=== PATIENT | female | born 1970 | race Caucasian/White ===

== ENCOUNTER 2019-08-08 05:50 | Outpatient (RCR) | payer OTHER ==
[~2019-08-08] VITALS: Ht 157 cm; Wt 63.0 kg
[~2019-08-08 05:50] MED LIST: ATEN50TA PO; LEVO75TA6 PO
== END 2019-08-08 15:08 | disposition home or self-care (01) ==
LOC: PREOP 05:50
PROVIDERS: ATTEND Surgery
DX: Z01.812 Encounter for preprocedural laboratory examination (principal); Z20.828 Contact with and (suspected) exposure to other viral communicable diseases; Z85.038 Personal history of other malignant neoplasm of large intestine
CPT/HCPCS: 87635

== ENCOUNTER 2019-08-13 13:40 | Day surgery (SDC) | payer OTHER ==
[2019-08-13] VITALS (8 sets, daily range): BP systolic 119–147; BP diastolic 66–106
[~2019-08-13] VITALS: Ht 157 cm; Wt 63.0 kg
[2019-08-13] MEDS ORDERED: LACTATED RINGERS 1,000 ML IV ONE (13:43)
[2019-08-13] MEDS ORDERED: LACTATED RINGERS 1,000 ML IV STA (13:47)
--- NOTE | 2019-08-13 13:57 | Progress Note-Pre Operative ---
Pre-Operative Progress Note H&P Reviewed The H&P was reviewed, patient examined and no changes noted. Date Seen by Provider: Aug 13, 2019 Time Seen by Provider: 13:56 Date H&P Reviewed: Aug 13, 2019 Time H&P Reviewed: 13:56 Pre-Operative Diagnosis: family history colon cancer PATRICIA FREEMAN DO Aug 13, 2019 13:57
[2019-08-13] MEDS ORDERED: PROPOFOL INJECTION 50 ML IV ONE (14:36)
[2019-08-13] MEDS ORDERED: MIDAZOLAM 2 MG/2 ML (VERSED) VIAL ONE (14:37)
[2019-08-13] MEDS ORDERED: proPOfol 200 MG/20 ML (DIPRIVAN) VIAL IV ONE (15:07)
--- NOTE | 2019-08-13 15:16 | Progress Note-Post Operative ---
Post-Operative Progess Note Surgeon (s)/School Crossing Guard Supervisor (s) Surgeon PATRICIA FREEMAN DO School Crossing Guard Supervisor: na Pre-Operative Diagnosis family history colon cancer Post-Operative Diagnosis diverticulosis Procedure & Operative Findings Date of Procedure 08/13/19 Procedure Performed/Findings colonoscopy Anesthesia Type per chief vendor quality Estimated Blood Loss Estimated blood loss (mL): none Specimens/Packing Specimens Removed na PATRICIA FREEMAN DO Aug 13, 2019 15:16
--- NOTE | 2019-08-13 15:18 | Discharge Inst-Simple/Standard ---
Discharge Inst-Standard Discharge Medications New, Converted or Re-Newed RX: RX on Chart Patient Instructions/Follow Up Plan of Care/Instructions/FU: 2 weeks Robert to discuss hernia repair Activity as Tolerated: Yes Discharge Diet: Regular Diet (high fiber) PATRICIA FREEMAN DO Aug 13, 2019 15:18
--- OUTSIDE RECORDS SUMMARY | 2019-08-13 17:53 | XMS REPORT | Continuity of Care Document ---
Author Organization Unknown Address Unknown Phone Unavailable Allergies Active Description Code Type Severity Reaction Onset Reported/Identified Relationship to Patient Clinical Status Yes iodine [id number] Drug Allergy Mild "DIDNT LIKE THE 08/06/2019 Medications There is no data. Problems Date Dx Coded Attending Type Code Diagnosis Diagnosed By 01/05/1507 PATRICIA FREEMAN DO Ot Z01.812 ENCOUNTER FOR PREPROCEDURAL LABORATORY E 01/05/1507 PATRICIA FREEMAN DO Ot Z20.828 CONTACT W AND EXPOSURE TO OTH VIRAL COMM 01/05/1507 PATRICIA FREEMAN DO Ot Z85.038 PERSONAL HISTORY OF MALIGNANT NEOPLASM O Procedures There is no data. Results Test Result Range Coronavirus SARS-CoV-2 SO 2018 - 0 10:55 Coronavirus Ab [Units/volume] in Serum Negative Negative Encounters ACCT No. Visit Date/Time Discharge Status Pt. Type Provider Facility Loc./Unit Complaint [id number] 08/08/2019 05:50:00 020 15:08:00 DIS Outpatient PATRICIA FREEMAN DO Via [facility] PREOP SCREENING/FAMILY HX COL ON CA [id number] 08/13/2019 09:00:00 P EN Preadmit PATRICIA FREEMAN DO Via [facility] ENDO SCREENING/FAMILY HX COLON CA
--- NOTE | 2019-08-14 02:42 | OPERATIVE REPORT ---
DATE OF SERVICE: 08/13/2019 PREOPERATIVE DIAGNOSIS: Family history of colon cancer. POSTOPERATIVE DIAGNOSIS: Diverticulosis. PROCEDURE: Colonoscopy. SURGEON: Patricia Jones DO ANESTHESIA: Per RECESSING MACHINE OPERATOR. ESTIMATED BLOOD LOSS: None. COMPLICATIONS: None. INDICATIONS: The patient is a 49-year-old female with need for screening colonoscopy. She understands risks and benefits of procedure and wished to proceed with procedure. Consent was signed in the chart. DESCRIPTION OF PROCEDURE: The patient was taken to the endoscopy suite, placed in the left lateral recumbent position. Timeout was performed. Digital rectal exam was performed. There were no palpable polyps, masses or ulcerations. Scope was inserted in the rectum, advanced all the way to cecum with minimal difficulty. Prep was adequate. Scope was then slowly retracted back. There were no polyps, masses or ulcerations within the cecum, ascending, transverse, descending and sigmoid colon. The patient throughout most of the colon had diverticulosis. Once in the rectum, scope was retroflexed noting no other pathology. Scope was returned to its normal position, slowly withdrawn until completely removed. The patient tolerated procedure well without any complications. She was taken to recovery room in stable condition. RECOMMENDATIONS: The patient will need repeat colonoscopy in 5 years. Any issues before that be seen at that time. The patient will follow up in 2 weeks to discuss proceeding with hernia repair. Job ID: [id number] DocumentID: [id number] Dictated Date: 08/13/2019 15:37:52 Prompt Care Rn Date: 08/14/2019 02:41:30 Dictated By: PATRICIA JONES DO
== END 2019-08-13 15:55 | disposition home or self-care (01) ==
LOC: ENDO 13:40
PROVIDERS: ATTEND Surgery
DX: Z12.11 Encounter for screening for malignant neoplasm of colon (principal); K57.30 Diverticulosis of large intestine without perforation or abscess without bleeding; K43.9 Ventral hernia without obstruction or gangrene; K42.9 Umbilical hernia without obstruction or gangrene; I10 Essential (primary) hypertension; K21.9 Gastro-esophageal reflux disease without esophagitis; E03.9 Hypothyroidism, unspecified; M06.9 Rheumatoid arthritis, unspecified; G89.29 Other chronic pain; M54.9 Dorsalgia, unspecified; D64.9 Anemia, unspecified; Z79.899 Other long term (current) drug therapy; Z91.041 Radiographic dye allergy status; Z87.891 Personal history of nicotine dependence; Z80.0 Family history of malignant neoplasm of digestive organs

== ENCOUNTER 2019-10-22 14:52 | Outpatient (CLI) | payer OTHER ==
[~2019-10-22] VITALS: Ht 157 cm; Wt 60.4 kg
[2019-10-24] MEDS ORDERED: HYDR-4226 PO (09:23)
[2019-10-24] MEDS ORDERED: DOCU-143 PO (09:23)
== END 2019-10-22 14:54 | disposition home or self-care (01) ==
LOC: PREOP 14:52
PROVIDERS: ATTEND Surgery
DX: Z01.818 Encounter for other preprocedural examination (principal)

== ENCOUNTER 2020-02-13 05:35 | Outpatient (RCR) | payer OTHER ==
[~2020-02-13 05:35] MED LIST changes: +DOCU-143 PO; +HYDR-4226 PO; +HYDR25TA4 PO
== END 2020-05-13 ==
LOC: PREOP 05:35
PROVIDERS: ATTEND Otolaryngology Otolaryngology/Facial Plastic Surgery
DX: Z01.812 Encounter for preprocedural laboratory examination (principal); H90.0 Conductive hearing loss, bilateral; H69.93 Unspecified Eustachian tube disorder, bilateral; H65.23 Chronic serous otitis media, bilateral

== ENCOUNTER 2021-08-17 12:05 | Emergency (ER) | payer SELFPAY ==
[~2021-08-17] VITALS: Ht 154.9 cm; Wt 62.5 kg
[2021-08-17 12:59] LABS: BASOPHILS # (AUTO) 0.1 10^3/uL (0.0-0.1); BASOPHILS % (AUTO) 1 % (0-10); EOSINOPHILS # (AUTO) 0.2 10^3/uL (0.0-0.3); EOSINOPHILS % (AUTO) 2 % (0-10); HEMATOCRIT 42 % (35-52); HEMOGLOBIN 13.8 g/dL (11.5-16.0); LYMPHOCYTES # (AUTO) 1.7 10^3/uL (1.0-4.0); LYMPHOCYTES % (AUTO) 16 % (12-44); MEAN CORPUSCULAR HEMOGLOBIN 29 pg (25-34); MEAN CORPUSCULAR HGB CONC 33 g/dL (32-36); MEAN CORPUSCULAR VOLUME 89 fL (80-99); MEAN PLATELET VOLUME 11.4 fL (9.0-12.2); MONOCYTES # (AUTO) 0.8 10^3/uL (0.0-1.0); MONOCYTES % (AUTO) 7 % (0-12); NEUTROPHILS # (AUTO) 7.9 10^3/uL (1.8-7.8); NEUTROPHILS % (AUTO) 74 % (42-75); PLATELET COUNT 215 10^3/uL (130-400); WHITE BLOOD COUNT 10.7 10^3/uL (4.3-11.0)
[2021-08-17 13:03] LABS: BILIRUBIN,URINE 2+ (NEGATIVE); CLARITY,URINE CLOUDY; COLOR,URINE ORANGE; GLUCOSE, URINE (UA) 1+ (NEGATIVE); KETONES,URINE TRACE (NEGATIVE); LEUKOCYTE ESTERASE ,URINE NEGATIVE (NEGATIVE); NITRITE,URINE POSITIVE (NEGATIVE); PH,URINE 5.5 (5-9); PROTEIN,URINE 2+ (NEGATIVE)
[2021-08-17 13:06] LABS: ALBUMIN 4.4 GM/DL (3.2-4.5); POTASSIUM 3.8 MMOL/L (3.6-5.0)
[2021-08-17 13:08] LABS: CALCIUM 9.4 MG/DL (8.5-10.1)
[2021-08-17 13:09] LABS: TOTAL PROTEIN 7.2 GM/DL (6.4-8.2)
[2021-08-17 13:11] LABS: BILIRUBIN,TOTAL 0.5 MG/DL (0.1-1.0)
[2021-08-17 13:12] LABS: CREATININE SERUM 0.75 MG/DL (0.60-1.30)
[2021-08-17 13:12] LABS: BACTERIA,URINE TRACE /HPF; SQUAMOUS EPITHELIAL CELL,UR 0-2 /HPF; WBC,URINE 0-2 /HPF
[2021-08-17] MEDS ORDERED: cefTRIAXone 1 GM PRE-MIX 50 ML IV STA (13:53)
--- NOTE | 2021-08-17 13:56 | ED Abdominal Pain ---
General Chief Complaint: Abdominal/GI Problems Stated Complaint: ABD PAIN Nursing Triage Note: PT AMB TO FT1 WITH COMPLAINT OF LLQ ABD PAIN. STATES STARTED LAST NIGHT. Source of Information: Patient Exam Limitations: No Limitations History of Present Illness Date Seen by Provider: Aug 17, 2021 Time Seen by Provider: 13:54 Initial Comments Patient is a 51-year-old female presents ED with lower abdominal cramping discomfort. This started yesterday evening. Cramping has been constant bilateral lower abdomen and to lower back. She reports frequent urination with some pain and discomfort. She denies of any nausea vomiting, diarrhea. She states she was constipated a few days ago but that has improved. Has been taking anti-inflammatories with some improvement. She states she felt feverish. Denies chest pain, shortness of breath, sore throat, ear pain, headache, dizziness Allergies and Home Medications Allergies Coded Allergies: iodine (Verified Allergy, Mild, "DIDNT LIKE THE WAY IT MADE HER FEEL", 08/06/19) Patient Home Medication List Home Medication List Reviewed: Yes Atenolol (Atenolol) 50 Mg Tablet, 50 MG PO DAILY, (Reported) Entered as Reported by: FAWAD RODRIGUEZ on 08/06/19 1019 [facility]fl[facility] ([facility]fl[facility]) [facility] Prescribed by: ZOILA ROSS on 08/17/21 1521 Docusate Sodium (Colace) 100 Mg Capsule, 100 MG PO BID Prescribed by: PATRICIA FREEMAN on 10/24/19 0923 Hydrochlorothiazide (Hydrochlorothiazide) 25 Mg Tablet, 25 MG PO DAILY Prescribed by: MAGALY GREGORY on 10/25/19 1332 Hydrocodone/Acetaminophen (Hydrocodone/Acetaminophen 5 MG/325 MG TAB) 1 Each Tablet, 1 TAB PO Q4-6HR Prescribed by: PATRICIA FREEMAN on 10/24/19 0923 Hydrocodone/Acetaminophen (Hydrocodone-Acetamin 5-325 mg) 5 Mg-325 Mg Tablet, 1 TAB PO Q4H PRN for PAIN-MODERATE (5-7) Prescribed by: ZOILA ROSS on 08/17/21 1523 Levothyroxine Sodium (Levothyroxine Sodium) 75 Mcg Tablet, 75 MCG PO DAILY, (Reported) Entered as Reported by: FAWAD RODRIGUEZ on 08/06/19 1019 Metronidazole (Metronidazole) 500 Mg Tablet, 500 MG PO TID Prescribed by: ZOILA ROSS on 08/17/21 1521 Review of Systems Review of Systems Constitutional: No chills, No diaphoresis, No malaise, No weakness EENTM: No Blurred Vision, No Eye Pain Respiratory: Denies Cough, Denies Shortness of Air Cardiovascular: Denies Chest Pain, Denies Edema Gastrointestinal: Abdominal Pain; Denies Diarrhea; Nausea; Denies Vomiting Genitourinary: Denies Burning, Denies Discharge; Frequency Musculoskeletal: back pain; No joint pain Skin: No change in color, No change in hair/nails All Other Systems Reviewed Negative Unless Noted: Yes Past Zzonyjm-Tfzbxm-Umpgsw Hx Patient Social History Tobacco Use?: No Use of E-Cig and/or Vaping dev: No Substance use?: No Alcohol Use?: No Pt feels they are or have been: No Immunizations Up To Date Influenza Vaccine Up-to-Date: No; Not Current Seasonal Allergies Seasonal Allergies: Yes Past Medical History Surgeries: Yes (BMT, LEG FX) Section Respiratory: No Cardiac: Yes Hypertension Neurological: No Sexually Transmitted Disease: No HIV/AIDS: No Genitourinary: No Gastrointestinal: Yes (MILD) Gastroesophageal Reflux Musculoskeletal: Yes Arthritis, Chronic Back Pain Endocrine: Yes Hypothyroidsim HEENT: No Loss of Vision: Denies Hearing Impairment: Denies Cancer: No Psychosocial: No Integumentary: Yes (MILD) Psoriasis Blood Disorders: No (HX ANEMIA) Adverse Reaction/Blood Tranf: No (N/A) Family Medical History Colon cancer Physical Exam Vital Signs Vital Signs - First Documented 08/17/21 12:22 Pulse 74 Resp 16 B/P (MAP) 94/63 (73) Pulse Ox 94 O2 Delivery Room Air Capillary Refill : Height/Weight/BMI Height: '" Weight: lbs. oz. kg; 26.00 BMI Method: General Appearance: WD/WN, no apparent distress HEENT: PERRL/EOMI, normal ENT inspection, TMs normal, pharynx normal Neck: non-tender, full range of motion, supple, normal inspection Respiratory: chest non-tender, lungs clear, normal breath sounds, no re spiratory distress, no accessory muscle use Cardiovascular: regular rate, rhythm, no edema, no gallop, no JVD, no murmur Gastrointestinal: normal bowel sounds, soft, no organomegaly, no pulsatile mass, tenderness (Suprapubic, left lower quadrant tenderness) Back: normal inspection, no CVA tenderness, no vertebral tenderness Neurologic/Psychiatric: yard clerk II-XII nml as tested, no motor/sensory deficits, alert, normal mood/affect Progress/Results/Core Measures Results/Orders Lab Results Laboratory Tests Test 08/17/21 12:50 08/17/21 13:00 Range/Units White Blood Count 10.7 4.3-11.0 10^3/uL Red Blood Count 4.74 3.80-5.11 10^6/uL Hemoglobin 13.8 11.5-16.0 g/dL Hematocrit 42 35-52 % Mean Corpuscular Volume 89 80-99 fL Mean Corpuscular Hemoglobin 29 25-34 pg Mean Corpuscular Hemoglobin Concent 33 32-36 g/dL Red Cell Distribution Width 13.1 10.0-14.5 % Platelet Count 215 130-400 10^3/uL Mean Platelet Volume 11.4 9.0-12.2 fL Immature Granulocyte % (Auto) 0 % Neutrophils (%) (Auto) 74 42-75 % Lymphocytes (%) (Auto) 16 12-44 % Monocytes (%) (Auto) 7 0-12 % Eosinophils (%) (Auto) 2 0-10 % Basophils (%) (Auto) 1 0-10 % Neutrophils # (Auto) 7.9 H 1.8-7.8 10^3/uL Lymphocytes # (Auto) 1.7 1.0-4.0 10^3/uL Monocytes # (Auto) 0.8 0.0-1.0 10^3/uL Eosinophils # (Auto) 0.2 0.0-0.3 10^3/uL Basophils # (Auto) 0.1 0.0-0.1 10^3/uL Immature Granulocyte # (Auto) 0.0 0.0-0.1 10^3/uL Sodium Level 137 135-145 MMOL/L Potassium Level 3.8 3.6-5.0 MMOL/L Chloride Level 102 98-107 MMOL/L Carbon Dioxide Level 27 21-32 MMOL/L Anion Gap 8 5-14 MMOL/L Blood Urea Nitrogen 13 7-18 MG/DL Creatinine 0.75 0.60-1.30 MG/DL Estimat Glomerular Filtration Rate 95 BUN/Creatinine Ratio 17 Glucose Level 91 70-105 MG/DL Calcium Level 9.4 8.5-10.1 MG/DL Corrected Calcium 9.1 8.5-10.1 MG/DL Total Bilirubin 0.5 0.1-1.0 MG/DL Aspartate Amino Transf (AST/SGOT) 16 5-34 U/L Alanine Aminotransferase (ALT/SGPT) 14 0-55 U/L Alkaline Phosphatase 46 40-136 U/L Total Protein 7.2 6.4-8.2 GM/DL Albumin 4.4 3.2-4.5 GM/DL Lipase 20 8-78 U/L Urine Color ORANGE Urine Clarity CLOUDY Urine pH 5.5 5-9 Urine Specific Graff 1.020 1.016-1.022 Urine Protein 2+ H NEGATIVE Urine Glucose (UA) 1+ H NEGATIVE Urine Ketones TRACE H NEGATIVE Urine Nitrite POSITIVE H NEGATIVE Urine Bilirubin 2+ H NEGATIVE Urine Urobilinogen 4.0 < = 1.0 MG/DL Urine Leukocyte Esterase NEGATIVE NEGATIVE Urine RBC (Auto) NEGATIVE NEGATIVE Urine RBC NONE /HPF Urine WBC 0-2 /HPF Urine Squamous Epithelial Cells 0-2 /HPF Urine Crystals NONE /LPF Urine Bacteria TRACE /HPF Urine Casts NONE /LPF Urine Mucus NEGATIVE /LPF Urine Culture Indicated YES My Orders Orders - NAYELY BECK Cbc With Automated Diff (08/17/21 12:31) Comprehensive Metabolic Panel (08/17/21 12:31) Lipase (08/17/21 12:31) Ua Culture If Indicated (08/17/21 12:31) Iv/Invasive Line Insertion .IV start (08/17/21 12:31) Urine Culture (08/17/21 13:00) Ceftriaxone 1 Gm Pre-Mix (Rocephin 1 Gm (08/17/21 13:53) Ketorolac Injection (Toradol Injection) (08/17/21 14:00) Ns Iv 1000 Ml (Sodium Chloride 0.9%) (08/17/21 13:57) Ct Abdomen/Pelvis Wo (08/17/21 14:03) Medications Given in ED Current Medications Medications Dose Ordered Sig/Juan Route Start Time Stop Time Status Last Admin Dose Admin Ketorolac Tromethamine 30 mg ONCE ONCE IVP 08/17/21 14:00 08/17/21 14:01 DC 08/17/21 14:08 30 MG Vital Signs/I&O 08/17/21 08/17/21 12:22 15:48 Pulse 74 77 Resp 16 16 B/P (MAP) 94/63 (73) 157/100 Pulse Ox 94 97 O2 Delivery Room Air Room Air Blood Pressure Mean: 73 Departure Communication (PCP) Patient urinalysis positive for UTI. Lab work was otherwise unremarkable. Was slightly hypertensive but was not febrile, tachycardic. CT abdomen pelvis without contrast secondary to allergy shows sigmoid diverticulitis without evidence of abscess, perforation. Patient was given IV pain medication with i mprovement of pain. Due to her current pain controlled with reassuring lab work patient will be discharged with Cipro and Flagyl. Will discharge a few days worth of pain medication. Discussed with patient this may progressively worsen and will need to return back to ED for further evaluation. Provided general surgery outpatient follow-up. Return precaution were discussed. Cipro should cover for UTI. However recommend recheck a urinalysis in 4 to 5 days. Patient was given a liter of fluid. Pain controlled. Patient was given a dose of Rocephin here. Impression Primary Impression: Diverticulitis of intestine Additional Impression: UTI (urinary tract infection) Disposition: 01 HOME, SELF-CARE Condition: Stable Departure-Patient Inst. Decision time for Depature: 15:19 Referrals: PATRICIA FREEMAN DAVID F MD (PCP/Family) Primary Care Physician Patient Instructions: Diverticulitis, Urinary Tract Infection, Adult ED Scripts Hydrocodone/Acetaminophen (Hydrocodone-Acetamin 5-325 mg) 5 Mg-325 Mg Tablet 1 TAB PO Q4H PRN for PAIN-MODERATE (5-7), #6 TAB Prov: NAYELY BECK 08/17/21 Ciprofloxacin (Ciprofloxacin) 500 Mg/5 Ml [facility]rec 500 MG PO BID for 7 Days, #14 TAB Prov: NAYELY BECK 08/17/21 Metronidazole (Metronidazole) 500 Mg Tablet 500 MG PO TID for 7 Days, #21 TAB Prov: NAYELY BECK 08/17/21 NAYELY BECK Aug 17, 2021 13:56
[2021-08-17] MEDS ORDERED: NS IV 1000 ML 1,000 ML IV STA (13:57)
[2021-08-17] MEDS ORDERED: KETOROLAC 30 MG/ML VIAL IVP ONE (14:00)
--- NOTE | 2021-08-17 14:55 | Diagnostic Imaging Report ---
PROCEDURE: CT abdomen and pelvis without contrast. TECHNIQUE: Multiple contiguous axial images were obtained through the abdomen and pelvis without the use of intravenous contrast. Auto Exposure Controls were utilized during the CT exam to meet ALARA standards for radiation dose reduction. INDICATION: Left lower quadrant pain. FINDINGS: Convincing features of acute sigmoid diverticulitis involving its proximal third in the left lower quadrant where there is regional diverticulosis, bowel wall thickening, and substantial edematous stranding of the perisigmoidal fat. There is, however, no abscess or drainable fluid collection and no appreciable extraluminal gas to suggest viscus perforation. There is no free air. There is no resultant bowel obstruction. No other segmental hollow visceral acute inflammatory process is found. The uterus, adnexa, and urinary bladder are unremarkable. No evidence for bladder fistula. The kidneys are unobstructed, nonfocal, and nonacute. The adrenals, spleen, liver, gallbladder, and bile ducts are unremarkable. The aorta is nonaneurysmal. IMPRESSION: Acute sigmoid diverticulitis without abscess, obstruction, or findings of viscus perforation. Dictated by: Dictated on workstation # [id number]
[2021-08-17] MEDS ORDERED: CIPR500S3 PO (15:21)
[2021-08-17] MEDS ORDERED: METR-145 PO (15:21)
[2021-08-17] MEDS ORDERED: ACHD5005 PO (15:22)
[2021-08-17 15:48] VITALS: BP 157/100
== END 2021-08-17 15:45 | disposition home or self-care (01) ==
LOC: EDUNIT# 12:05 → ER 12:08
DX: K57.32 Diverticulitis of large intestine without perforation or abscess without bleeding (principal); N39.0 Urinary tract infection, site not specified; I10 Essential (primary) hypertension
CPT/HCPCS: 36415; 74176; 80053; 81000; 83690; 85025; 87088